=== PATIENT | female | born 1955 | race Caucasian/White ===

== ENCOUNTER 2019-06-23 14:34 | Outpatient (CLI) | payer BC, SELFPAY ==
--- NOTE | ~2019-06-23 | DEXA_ITS ---
Bone Density Report Name: Paris Munson Age: 63 Sex: Female Ethnicity: White Date of : 1955 Indication: osteopenia; prior fracture; Referring Provider: BILLY ESCOBAR Study: Bone densitometry was performed. Exam Date: June 23, 2019 Accession number: [id number] Bone Density: Region BMD T-score Z-score Classification AP Spine (L1, L2, L3) 1.048 0.3 1.9 Normal Femoral Neck (Left) 0.706 -1.3 0.1 Osteopenia Total Hip (Left) 0.782 -1.3 -0.2 Osteopenia Total Hip Bilateral Avg 0.783 -1.3 -0.2 Osteopenia Femoral Neck (Right) 0.662 -1.7 -0.3 Osteopenia Total Hip (Right) 0.782 -1.3 -0.2 Osteopenia World Health Organization criteria for BMD impression classify patients as: Normal (T-score at or above -1.0), Osteopenia (T-score between -1.0 and -2.5), or Osteoporosis (T-score at or below -2.5). 10-year Fracture Risk(1): Major Osteoporotic Fracture 15% Hip Fracture 1.6% Reported Risk Factors: [place] (), Neck BMD=0.662, BMI=26.4, previous fracture (1) FRAX(R) Version 3.08. Fracture probability calculated for an untreated patient. Fracture probability may be lower if the patient has received treatment. Previous Exams: Region Exam Age BMD T-score BMD Change BMD Change Date g/cm2 vs Baseline vs Previous AP Spine(L1, L2, L3) 06/23/2019 63 1.048 0.3 -0.030(-2.8%)* -0.030(-2.8%)* 02/02/2017 61 1.078 0.5 Total Hip(Left) 06/23/2019 63 0.782 -1.3 -0.018(-2.3%) -0.018(-2.3%) 02/02/2017 61 0.800 -1.2 Total Hip(Right) 06/23/2019 63 0.782 -1.3 -0.013(-1.6%) -0.013(-1.6%) 02/02/2017 61 0.795 -1.2 *Denotes significance at 95% confidence level, LSC for AP Spine = 0.022 g/cm2, LSC for Total Hip = 0.027 g/cm2 Clinical Information Provided by Patient: Has had a low trauma fracture Has used the following medications: Vitamin D, Calcium Patient maximum height was 65 Menopause Age: 52 Does not regularly consume dairy products Drinks caffeinated beverages Onset of menses at age 13 Number of children 6 Impression: The patient has low bone mass, based on the Right Femoral Neck T-score. The patient has an estimated ten-year risk of hip fracture of 1.6% and an estimated ten-year risk of major fracture of 15%, based on the WHO FRAX algorithm. The patient has risk factors, including: previous fracture. The BMD for the AP Spine(L1, L2, L3) decreased, changing by -2.8% since the last DXA exam. Discussion: BONE DENSITY IS LOW
--- NOTE | ~2019-06-23 | MM_ITS ---
EXAMINATION: MM screening [facility] BI w georgette HISTORY: Screening mammogram TECHNIQUE: Craniocaudal and mediolateral oblique 3-D tomosynthesis images were obtained and synthetic 2-D images were generated. CAD analysis was submitted and interpreted. COMPARISON: Comparison to multiple prior studies sequentially, with oldest reviewed study dated 01/05. BREAST PARENCHYMAL COMPOSITION: There are scattered areas of fibroglandular density. FINDINGS: There is no evidence of suspicious mass, calcification, or architectural distortion to sugg est malignancy in either breast. There has been no suspicious interval change. IMPRESSION: 1. No mammographic evidence of malignancy. 2. Recommend routine screening mammography in one year. BI-RADS Category 1: Negative Reviewed, dictated and finalized at location A.
== END 2019-06-23 14:35 | disposition home or self-care (01) ==
LOC: ANHIMG 14:40
PROVIDERS: PCP Internal Medicine; Visit Provider Obstetrics & Gynecology Gynecology
DX: Z12.31 Encounter for screening mammogram for malignant neoplasm of breast (principal); Z78.0 Asymptomatic menopausal state; M85.852 Other specified disorders of bone density and structure, left thigh; M85.851 Other specified disorders of bone density and structure, right thigh
CPT/HCPCS: 77063; 77067; 77080

== ENCOUNTER 2020-06-24 10:31 | Outpatient (CLI) | payer BC, SELFPAY ==
--- NOTE | ~2020-06-24 | MM_ITS ---
EXAMINATION: MM screening [facility] BI w georgette HISTORY: Screening mammogram TECHNIQUE: Craniocaudal and mediolateral oblique 3-D tomosynthesis images were obtained and synthetic 2-D images were generated. CAD analysis was submitted and interpreted. COMPARISON: 06/23/2019, 06/16/2018, 02/02/2017 bilateral digital screening mammogram examinations BREAST PARENCHYMAL COMPOSITION: There are scattered areas of fibroglandular density. FINDINGS: There is no evidence of suspicious mass, calcification, or architectural distortion to sugg est malignancy in either breast. There has been no suspicious interval change. IMPRESSION: 1. No mammographic evidence of malignancy. 2. Recommend routine screening mammography in one year. BI-RADS Category 1: Negative Reviewed, dictated and finalized at location B.
== END 2020-06-24 10:32 | disposition home or self-care (01) ==
LOC: ANHIMG 10:33
PROVIDERS: PCP Internal Medicine; Visit Provider Obstetrics & Gynecology Gynecology
DX: Z12.31 Encounter for screening mammogram for malignant neoplasm of breast (principal)
CPT/HCPCS: 77063; 77067

== ENCOUNTER 2021-10-16 10:01 | Outpatient (CLI) | payer MEDICARE, OTHER, SELFPAY ==
--- NOTE | ~2021-10-16 | DEXA_ITS ---
Bone Density Report Name: MARIE COOK Age: 66 Sex: Female Ethnicity: White Date of : 1955 Indication: postmenopausal; screening for osteoporosis; height loss; rheumatoid arthritis; Referring Provider: BILLY ESCOBAR Study: Bone densitometry was performed. Exam Date: October 16, 2021 Accession number: [id number] Bone Density: Region BMD T-score Z-score Classification AP Spine(L1-L4) 1.110 0.6 2.4 Normal Femoral Neck (Left) 0.691 -1.4 0.1 Osteopenia Total Hip (Left) 0.787 -1.3 0.0 Osteopenia Femoral Neck (Right) 0.685 -1.5 0.0 Osteopenia Total Hip (Right) 0.766 -1.4 -0.2 Osteopenia Total Hip Mean 0.777 -1.4 -0.1 Osteopenia World Health Organization criteria for BMD impression classify patients as: Normal (T-score at or above -1.0), Osteopenia (T-score between -1.0 and -2.5), or Osteoporosis (T-score at or below -2.5). 10-year Fracture Risk(1): Major Osteoporotic Fracture 11% Hip Fracture 1.3% Reported Risk Factors: [place] (), Neck BMD=0.691, BMI=25.3, rheumatoid arthritis (1) FRAX(R) Version 3.08. Fracture probability calculated for an untreated patient. Fracture probability may be lower if the patient has received treatment. Clinical Information Provided by Patient: Has rheumatoid arthritis Has used the following medications: Vitamin D, Calcium Patient maximum height was 66 Menopause Age: 52 Drinks caffeinated beverages Onset of menses at age 13 Number of children 6 Impression: The patient has low bone mass, based on the Right Femoral Neck T-score. The patient has an estimated ten-year risk of hip fracture of 1.3% and an estimated ten-year risk of major fracture of 11%, based on the WHO FRAX algorithm. Discussion: BONE DENSITY IS LOW AT ONE OR MORE SKELETAL SITES. This patient's lowest T-score is low at one or more skeletal sites. It meets the World Health Organization's (WHO) criteria for ?low bone mass? (T-score between -1.0 and -2.5). The patient's 10-year risk of fracture as calculated by FRAX is less than the threshold where pharmacological therapy is recommended by the National Osteoporosis Foundation (NOF). However, all treatment decisions require clinical judgment and consideration of individual patient factors, including patient preferences, comorbidities, previous drug use, risk factors not captured in the FRAX model (e.g., frailty, falls, vitamin D deficiency, increased bone turnover, interval significant decline in bone density) and possible under or overestimation of fracture risk by FRAX. The patient should follow a healthful lifestyle (good nutrition with adequate calcium and vitamin D, and appropriate weight-bearing exercise). Follow-Up: Consider repeating this study in 2 to 3 years to reassess this patient's status, or sooner if ther
--- NOTE | ~2021-10-16 | MM_ITS ---
EXAMINATION: MM screening [facility] BI w georgette HISTORY: Screening mammogram TECHNIQUE: Craniocaudal and mediolateral oblique 3-D tomosynthesis images were obtained and synthetic 2-D images were generated. CAD analysis was submitted and interpreted. COMPARISON: 06/24/2020, 06/23/2019, 06/16/2018 BREAST PARENCHYMAL COMPOSITION: There are scattered areas of fibroglandular density. FINDINGS: There is no suspicious mass, calcification, or architectural distortion to suggest malignan cy in either breast. There has been no suspicious interval change. IMPRESSION: 1. No mammographic evidence of malignancy. 2. Recommend routine screening mammography in one year. BI-RADS Category 1: Negative Reviewed, dictated and finalized at location A.
== END 2021-10-16 10:02 | disposition home or self-care (01) ==
PROVIDERS: PCP Internal Medicine; Visit Provider Obstetrics & Gynecology Gynecology
DX: Z12.31 Encounter for screening mammogram for malignant neoplasm of breast (principal); Z78.0 Asymptomatic menopausal state; M85.852 Other specified disorders of bone density and structure, left thigh; M85.851 Other specified disorders of bone density and structure, right thigh
CPT/HCPCS: 77063; 77067; 77080

== ENCOUNTER 2023-07-19 10:01 | Outpatient (CLI) | payer MEDICARE, OTHER, SELFPAY ==
--- NOTE | ~2023-07-19 | MM_ITS ---
EXAMINATION: MM screening [facility] BI w georgette HISTORY: Screening TECHNIQUE: Craniocaudal and mediolateral oblique 3-D tomosynthesis images were obtained and synthetic 2-D images were generated. CAD analysis was submitted and interpreted. COMPARISON: Comparison to multiple prior studies sequentially, with oldest reviewed study dated 06/24. BREAST PARENCHYMAL COMPOSITION: FINDINGS: There is no evidence of suspicious mass, calcification, or architectural distortion to sugg est malignancy in either breast. There has been no suspicious interval change. IMPRESSION: 1. No mammographic evidence of malignancy. 2. Recommend routine screening mammography in one year. BI-RADS Category 1: Negative Reviewed, dictated and finalized at location A.
== END 2023-07-19 10:02 | disposition home or self-care (01) ==
LOC: ANHIMG 10:04
PROVIDERS: PCP Physician Assistant; Visit Provider Obstetrics & Gynecology Gynecology
DX: Z12.31 Encounter for screening mammogram for malignant neoplasm of breast (principal)
CPT/HCPCS: 77063; 77067

== ENCOUNTER 2024-09-29 08:21 | Outpatient (CLI) | payer MEDICARE, OTHER, SELFPAY ==
--- NOTE | ~2024-09-29 | DEXA_ITS ---
Bone Density Report Name: MARIE COOK Age: 69 Sex: Female Ethnicity: White Date of : 1955 Indication: osteopenia; parental hip fracture; height loss; Referring Provider: BILLY ESCOBAR Study: Bone densitometry was performed. Exam Date: September 29, 2024 Accession number: [id number] Bone Density: Region BMD T-score Z-score Classification AP Spine(L1-L4) 1.087 0.4 2.3 Normal Femoral Neck (Left) 0.653 -1.8 -0.1 Osteopenia Total Hip (Left) 0.794 -1.2 0.2 Osteopenia Femoral Neck (Right) 0.697 -1.4 0.3 Osteopenia Total Hip (Right) 0.742 -1.6 -0.2 Osteopenia Total Hip Mean 0.768 -1.4 0.0 Osteopenia World Health Organization criteria for BMD impression classify patients as: Normal (T-score at or above -1.0), Osteopenia (T-score between -1.0 and -2.5), or Osteoporosis (T-score at or below -2.5). 10-year Fracture Risk(1): Major Osteoporotic Fracture 17% Hip Fracture 2.5% Reported Risk Factors: [place] (), Neck BMD=0.653, BMI=25.3, parental fracture (1) FRAX(R) Version 3.08. Fracture probability calculated for an untreated patient. Fracture probability may be lower if the patient has received treatment. Previous Exams: Region Exam Age BMD T-score BMD Change BMD Change Date g/cm2 vs Baseline vs Previous AP Spine (L1-L4) 09/29/2024 69 1.087 0.4 -0.023 (-2.1%) -0.023 (-2.1%) 10/16/2021 66 1.110 0.6 Total Hip(Left) 09/29/2024 69 0.794 -1.2 0.007 (0.9%) 0.007 (0.9%) 10/16/2021 66 0.787 -1.3 Total Hip(Right) 09/29/2024 69 0.742 -1.6 -0.025 (-3.2%) -0.025 (-3.2%) 10/16/2021 66 0.766 -1.4 *Denotes significance at 95% confidence level, LSC for AP Spine = 0.022 g/cm2, LSC for Total Hip = 0.027 g/cm2 Clinical Information Provided by Patient: Parent has had a hip fracture Has used the following medications: Vitamin D, Calcium Patient maximum height was 67 Menopause Age: 52 Does not regularly consume dairy products Drinks caffeinated beverages Onset of menses at age 13 Number of children 6 Impression: The patient has low bone mass, based on the Left Femoral Neck T-score. The patient has an estimated ten-year risk of hip fracture of 2.5% and an estimated ten-year risk of major fracture of 17%, based on the WHO FRAX algorithm. The patient has risk factors, including: parental hip fracture. The BMD for the AP Spine (L1-L4) decreased, changing by -2.1% since the last DXA exam. Discussion: BONE DENSITY IS LOW AT ONE OR MORE SKELETAL SITES. This patient's lowest T-score is low at one or more skeletal sites. It meets the World Health Organization's (WHO) criteria for ?low bone mass? (T-score between -1.0 and -2.5). The patient's 10-year risk of fracture as calculated by FRAX is less than the threshold where pharmacological therapy is recommended by the National Osteoporosis Foundation (NOF). However, all treatment decisions require clinical judgment and consideration of individual patient factors, including patient preferences, comorbidities, previous drug use, risk factors not captured in the FRAX model (e.g., frailty, falls, vitamin D deficiency, increased bone turnover, interval significant decline in bone density) and possible under or overestimation of fracture risk by FRAX. The patient should follow a healthful lifestyle (good nutrition with adequate calcium and vitamin D, and appropriate weight-bearing exercise). Follow-Up: Consider repeating this study in 2 years to reassess this patient's status, or sooner if there is some new clinical indication. Reported by: HAY on 09/29/2024 8:57:00 AM. Reviewed, dictated and finalized at location A.
== END 2024-09-29 08:22 | disposition home or self-care (01) ==
LOC: ANHIMG 08:23
PROVIDERS: PCP Physician Assistant; Visit Provider Obstetrics & Gynecology Gynecology
DX: Z78.0 Asymptomatic menopausal state (principal); M85.852 Other specified disorders of bone density and structure, left thigh; M85.851 Other specified disorders of bone density and structure, right thigh
CPT/HCPCS: 77080

== ENCOUNTER 2025-03-07 15:05 | Outpatient (CLI) | payer MEDICARE, OTHER, SELFPAY ==
--- NOTE | ~2025-03-07 | MM_ITS ---
EXAMINATION: MM screening kandi BI w georgette HISTORY: Screening. TECHNIQUE: Craniocaudal and mediolateral oblique 3-D tomosynthesis images were obtained and synthetic 2-D images were generated. CAD analysis was submitted and interpreted. COMPARISON: 2023, 2021, 2020 BREAST PARENCHYMAL COMPOSITION: Not Dense: There are scattered areas of fibroglandular FINDINGS: There is asymmetry just medial to the nipple line in the posterior depth on the left craniocaudal view. There are no suspicious calcifications. No unexplained architectural distortion is seen. There are no skin or nipple abnormalities identified. There is no adenopathy seen on the images submitted. IMPRESSION: Asymmetry as described for which additional imaging is recommended. BI-RADS 0 - Incomplete - needs additional imaging evaluation and/or prior mammograms for comparison. Reviewed, dictated and finalized at location B. SSES FEED MIXER IMPRESSION: Asymmetry as described for which additional imaging is recommended. BI-RADS 0 - Incomplete - needs additional imaging evaluation and/or prior mammo grams for comparison.
--- OUTSIDE RECORDS SUMMARY | 2025-03-07 16:28 | XMS_ITS | Clinical Summary ---
Author Organization [facility] Building A Address [address] [place] [address] Care Team Providers Care Vp Project Name Role Phone Unruly Mc Primary Care Provider Romy Rowe MD Unavailable [phone] Melecio Tinajero MD Unavailable [phone] Allergies No known active allergies Medications multivitamin capsule Take 1 capsule by mouth daily Active cholecalciferol , vitamin D3, (VITAMIN D3 ORAL) Take by mouth Twice a week Active Active Problems Problem Noted Date Diagnosed Date Sinus bradycardia 07/16/2021 Hx of colonic polyps 08/06/2020 Overview (08/06/2020): Added automatically from request for surgery [id number] Osteopenia of multiple sites 06/28/2019 Generalized anxiety disorder 04/15/2017 Immunizations Immunization Administration Dates Next Due Influenza, Quad, Adjuvantate d, Intramuscular 02/17/2023,02/03/2022 Influenza, Quadrivalent, Spl it, Preservative Free, Intradermal 02/07/2016,02/15/2015 Influenza, Quadrivalent, Spl it, Preservative Free, Intramuscular 02/04/2021,02/14/2020,01/19/2019,01/18,03/04/2017 Influenza, Split 03/16/2013, 2,01/22/2011,02/14,04/08/2009 Influenza, Trivalent, Adjuva nted, Intramuscular 02/17/2024 Influenza, Trivalent, IM (MDV) 03/16/2013,2007 Influenza, Trivalent, Recomb inant, Egg Free, Preservative Free, Antibiotic Free, IM (FLUBLOK) 01/24/2014 Pfizer SARS-CoV-2 Monovalent Vaccination (12+ Yrs) PURPLE 07/06/2020 Pneumococcal Conjugate Pcv20 09/29/2022 Pneumococcal Polysaccharide PPV23 07/15/2021 Td, adsorbed 06/23/2018 Tdap 03/15/2006 ZOSTER Recombinant 09/14/2019,05/12/2019 Surgical History Surgery Date Site/Laterality Comments OTHER SURGICAL HISTORY salpingoohrectomy right TUBAL LIGATION Bilateral tubal ligation COLONOSCOPY 08/03/2012 - 09/02/2012 Medical History Medical History Date Comments 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 Family History Medical History Relation Name Comments Other Brother 4 Alive and well; Other Brother 5 Alive and well; Other Brother 6 Alive and well; Other Father Alive and well; Rheum arthritis Father Heart failure Mother Hypertension Mother Hypertension; Uterine cancer Mother Cancer -uteri ne; Rheum arthritis Sister Relation Name Status Comments Brother 1 Alive Brother 2 Alive Brother 3 Alive Brother 4 Brother 5 Brother 6 Father Alive Mother Sister Social History Tobacco Use Types Packs/Day Years Used Date Smoking Tobacco: Never Smokeless Tobacco: Never Tobacco Cessation:Counseling Given: Not Answered Alcohol Use Standard Drinks/Week Comments No 0 (1 standard drink = 0.6 oz pur e alcohol) AUDIT-C Answer Date Recorded Q1: How often do you have a drink containing alcohol? Never 10/05/2024 Q2: How many drinks containi ng alcohol do you have on a typical day when you are drinking? Patient does not drink Q3: How often do you have si x or more drinks on one occasion? 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 Gender Identity Not on file Sexual Orientation Not on file Last Filed Vital Signs Vital Sign Reading Time Taken Comments Blood Pressure 130/76 10/05/2024 10:50 AM CDT Pulse 55 10/05/2024 10:50 AM CDT Temperature 36.9 C (98.5 F) 10/05/2024 10:50 AM CDT Respiratory Rate 16 10/05/2024 10:50 AM CDT Oxygen Saturation 98% 10/05/2024 10:50 AM CDT Inhaled Oxygen Concentration - - Weight 69.6 kg (153 lb 6.4 oz) 10/05/2024 10:50 AM CDT Height 161.9 cm (5' 3.75) 10/05/2024 10:50 AM C DT Body Mass Index 26.54 10/05/2024 10:50 AM CDT Plan of Treatment Health Maintenance Due Date Last Done Comments Hepatitis B Screening 1973 Breast Cancer Screening-Mammogram 07/18/2024 07/19/2023, 10/16/2021, 06/23/2019, Additional history exists Covid-19 Vaccine (2024-05 6 season) 2024 02/03/2022, 07/26/2020, 07/06/2020 Depression Screening 10/05/2025 10/05/2024, 09/30/2023, 10/29/2022, Additional history exists Fall Risk Assessment 10/05/2025 10/05/2024, 09/30/2023, 10/29/2022, Additional history exists Well Visit 65+ 10/05/2025 10/05/2024, 09/04, 09/29/2022, Additional history exists Colon Cancer Screening-Colonoscopy 11/04/2025 11/04/2020, 08/04/2012, 08/04/2012 Osteoporosis Screening-Bone Density Scan 09/29/2026 09/29/2024, 10/16/2021, 06/23/2019, Additional history exists DTaP/Tdap/Td Vaccine (3 - Td or Tdap) 06/23/2028 06/23/2018, 03/15/2006 Zoster Vaccine Completed 09/14/2019, 05/12/2019 Colon Cancer Screening-CT Colonography Discontinued 11/04/2020, 08/04/2012, 08/04/2012 Colon Cancer Screening-DNA Stool Discontinued 11/04/2020, 08/04/2012, 08/04/2012 Colon Cancer Screening-FIT Discontinued 11/04, 08/04/2012, 08/04/2012 Colon Cancer Screening-Sigmoidoscopy Discontinued 11/04/2020, 08/04/2012, 08/04/2012 Pneumococcal vaccine 65+ Completed 09/29/2022, 07/04 Hepatitis C Screening Completed 10/01/2023 Influenza Vaccine Completed 02/07/2025, , 02/17/2023, Additional history exists Procedures Procedure Name Priority Date/Time Associated Diagnosis Comments DEXA AXIAL SKELETON BONE DENSITY 1 OR MORE SITES Schedule Routine, Read Routine (OP Routine) 09/29/2024 HEPATITIS C ANTIBODY Routine 10/01/2023 8:27 AM CDT Need for hepatitis C screening test SCREENING MAMMOGRAM BILATERAL W RAO Schedule Routine, Read Routine (OP Routine) 07/19/2023 COLONOSCOPY 11/04/2020 12:50 PM CDT from Last 3 Months or Most Recently Relevant to Health Maintenance Results * Dexa Axial Skeleton Bone Density 1 or 2 Site (09/29/2024) Anatomical Region Laterality Modality Body N/A Radiographic Brooke ging RECCY External Data Provider IMG DXA PROCEDURE S Final Result * Hepatitis C antibody Blood (10/01/2023 8:27 AM CDT) Hep C Ab NON-REACTI VE NON-REACT [facility] Comment: HCV antibody was non-reactive. There is no laboratory evidence of HCV infection. In most cases, no further action is required. However, if recent HCV exposure is suspected, a test for HCV RNA (test code 73181) is suggested. For additional information please refer to http://education.Compliance Science.Physicians Interactive/faq/YVV17g7 (This link is being provided for informational/ educational purposes only.) Blood 10/01/2023 8:27 AM CDT 10/01/2023 8:29 AM CDT Narrative QUEST - 10/11/2023 1:48 PM CDT PATIENT STATED ORDER WITH THE HEP ONLY FASTING:YES FASTING: YES us Unruly [facility] MICROBIOLOGY - GENE RAL ORDERABLES Final Result Cloudian Wendy[place]Hardik [address] [id number] * Screening Mammogram Bilateral W Rao (07/19/2023) Anatomical Region Laterality Modality Breast Bilateral Mammography us Generic External Data Provider IMG MAMMO PROCEDU RES Final Result * COLONOSCOPY (11/04/2020 12:50 PM CDT) Anatomical Region Laterality Modality Other Narrative Procedure Note Nyla Humphrey MD - 11/04/2020 12:[address] Patient Name: Paris Munson Procedure Date: 11/04/2020 12:50 PM Date of : 1955 Admit Type: Outpatient Age: 65 Gender: Female Attending MD: Nyla Humphrey M.D. Room: [facility] ENDOSCOPY ROOM 1 Note Status: Finalized Patient Profile: This is a 65 year old female. No family history of colon cancer. History of colon polyps and 1013. No specific GI complaint Procedure: Colonoscopy Indications: High risk colon cancer surveillance: Personalhistory of colonic polyps, Last colonoscopy: August 2012 Referring MD: Melecio Anderson M.D. Providers: Nyla Humphrey M.D. Impression: - The entire examined colon is normal overall. - Diverticulosis in the sigmoid colon and in the ascending colon. - Internal hemorrhoids. - No specimens collected. Recommendation: - Repeat colonoscopy in 8 years for screeningpurposes. - Continue present medications. Medicines: Monitored Anesthesia Care Complications: No immediate complications. Estimated Blood Loss: Estimated blood loss: none. Procedure: Pre-Anesthesia Assessment: - Prior to the procedure, a History and Physicalwas performed, and patient medications and allergieswere reviewed. The patient's tolerance of previous anesthesia was also reviewed. The risks andbenefits of the procedure and the sedation options and risks were discussed with the patient. All questions were answered, and informed consent was obtained. Prior Anticoagulants: The patient has taken no previous anticoagulant or antiplatelet agents. ASA Grade Assessment: II - A patient with mild systemicdisease. After reviewing the risks and benefits, the patient was deemed in satisfactory condition to undergo the procedure. The benefits, risks and alternatives of theprocedure and sedation were discussed and informed consentwas obtained. All questions were answered. Please referto the signed informed consent document in the medical record. The bowel preparation used was Miralax via split dose instruction. The bowel preparation usedwas bisacodyl tablets via split dose instruction. Bowel prep was administered using a split dose. The scope was passed under direct vision. The Pediatric Colonoscope PCF-H190L [id number] was introducedthrough the anus and advanced to the the cecum, identifiedby appendiceal orifice and ileocecal valve. Thequality of the bowel preparation was good. Findings: The perianal and digital rectal examinations were normal. The cecum appeared normal. The terminal ileum was intubated andappeared normal. The colon (entire examined portion) appeared normal. No polyps and no mass lesions noted Many medium-mouthed diverticula were found in the sigmoid colon and ascending colon. Internal hemorrhoids were found during retroflexion. The hemorrhoids were medium-sized. Electronically signed by yNla Humphrey M.D. Nyla Humphrey M.D. 11/04/2020 2:58:19 PM Number of Addenda: 0 Note Initiated On: 11/04/2020 12:50 PM Procedure Code(s): --- Professional --- 38267, Colonoscopy, flexible; diagnostic, including collection of specimen(s) by brushing or washing, when performed (separateprocedure) Diagnosis Code(s): --- Professional --- Z86.010, Personal history of colonic polyps K64.8, Other hemorrhoids K57.30, Diverticulosis of large intestine without perforation orabscess without bleeding CPT copyright 2019 [employer]. All rights reserved. The codes documented in this report are preliminary and upon ux lead reviewmay be revised to meet current compliance requirements. Recognized by the [employer] for promoting quality in endoscopy Nyla Humphrey MD ENDOSCOPY PROCEDURES Final Result from Last 3 Months or Most Recently Relevant to Health Maintenance Insurance MEDICARE [facility] Advance Directives For more information, please contact: [phone] * Full Code (Latest Code Status on File) Date Activated Date Inactivated Comments 11/04/2020 12:41 PM 11/04/2020 7:40 PM Care Teams Vp Project Relationship Specialty Start Date End Date Unruly Mc PA [address] [place] [address] PCP - General Internal Medicine 09/29/22 Romy Rowe MD [address] [place] [address] Referring Physician Gynecology 09/30/23 Melecio Tinajero MD [address] [place] [id number] Referring Physician Otolaryngology 10/05/24 KENENY OPT Optometry 10/05/24
--- OUTSIDE RECORDS SUMMARY | 2025-03-07 16:28 | XMS_ITS | Clinical Summary ---
Author Organization Gagan Bettencourt [facility] Address [address] [place] [address] Phone Care Team Providers Care Labor Custodian Name Role Phone Unavailable Primary Care Provider Unavailabl e Medications ergocalciferol, vitamin D2, (VITAMIN D ORAL) 2006 Ac tive multivitamin with minerals (ONE-A-DAY 50 PLUS ORAL) 2006 Active Active Problems Problem Noted Date Diagnosed Date Multiple thyroid nodules 09/16/2022 Encounters Date Type Department Care Team Description 02/20/2025 External Device Data STL ABSTRACTION Provider, Abstract 01/24/2025 External Device Data STL ABSTRACTION Provider, Abstract 01/24/2025 External Device Data STL ABSTRACTION Provider, Abstract 12/19/2024 External Device Data STL ABSTRACTION Provider, Abstract from Last 3 Months Family History Medical History Relation Name Comments Heart Disease Father Dakota Smalls CHF with mitr al valve disease Cancer Mother Erica Smalls uterine ca Heart Disease Mother Erica Smalls Hypertensive C HF with atrial fib Hypertension Mother Erica Smalls Hearing Loss Sister Shahida Mcnally M ni re's disease with bilateral hearing loss Relation Name Status Comments Father Dakota Smalls Mother Erica Smalls Sister Shahida Mcnally Social History Tobacco Use Types Packs/Day Years Used Date Smoking Tobacco: Never Tobacco Cessation:Counseling Given: Not Answered Alcohol Use Standard Drinks/Week Comments Never 0 (1 standard drink = 0.6 oz pur e alcohol) Comments Unknown Sex and Gender Information Value Date Recorded Sex Assigned at Female 06/22/2024 10:45 AM CDT Legal Sex Female 8:11 AM CDT Gender Identity Female 06/22/2024 10:45 AM CDT Sexual Orientation Straight 06/22/2024 10 :45 AM CDT Plan of Treatment Health Maintenance Due Date Last Done Comments FIT-DNA Q 3 years 2001 FIT/FOBT Q 1 year 2001 Flex Sig/CT Colonography Q 5 years 2001 BREAST CANCER SCREENING 07/18/2024 07/19/19 24, 01/16/2015, 10/04/2013, Additional history exists INFLUENZA VACCINE (#1) 2024 3, 02/03/2022, 02/04/2021, Additional history exists COVID-19 Vaccine (2 2024-2 6 season) 2024 07/06/2020 OSTEOPOROSIS SCREENING 10/16/2026 10/16/2021, 2013 DTAP/TDAP/TD VACCINES (3 - T d or Tdap) 06/23/2028 06/23/2018, 03/15/2006 COLORECTAL SCREENING 11/04/2030 11/04/2020, 11/04/2020, 08/04/2012 Colorectal Cancer Screening 11/04/2030 RSV VACCINE (60+ or ) (1 - 1-dose 75+ series) 07/11/2031 ZOSTER VACCINE Completed 09/14/2019, 05/12/2019 PNEUMOCOCCAL VACCINE 50+ YEARS Completed 09/29/2022 , 07/15/2021 Insurance MEDICARE PART A AND B [facility]
--- OUTSIDE RECORDS SUMMARY | 2025-03-07 16:28 | XMS_ITS | Encounter Summary ---
Author Organization [facility] Address [address] [place] [address] Phone Care Team Providers Care Yarn Examiner Skeins Name Role Phone Melecio Anderson MD Primary Care Provider [phone] Unruly Mc Primary Care Provider Romy Rowe MD Unavailable [phone] Melecio Tinajero MD Unavailable [phone] Encounter Details Date Type Department Care Team (Late st Contact Info) Description 04/15/2017 Orders Only [facility] ProviderManuel MD [address] [place] [id number] Social History Tobacco Use Types Packs/Day Years Used Date Smoking Tobacco: Never Smokeless Tobacco: Never Alcohol Use Standard Drinks/Week Comments No 0 (1 standard drink = 0.6 oz pur e alcohol) Comments Unknown Sex and Gender Information Value Date Recorded Sex Assigned at Not on file Legal Sex Female 6:28 PM BAR CATCHER Gender Identity Not on file Sexual Orientation Not on file documented as of this encounter Functional Status * In the past year, patient experienced: Question Answer Date of Assessment Author One or more falls in the las t year No 04/15/2017 10:25 AM Imelda Modi ra, [place] * BP Location Answer Date of Assessment Author Right arm 04/15/2017 10:29 AM Miri Christensen MA * BP Location Answer Date of Assessment Author Right arm 04/15/2017 10:29 AM Miri Christensen MA documented as of this encounter Plan of Treatment Not on file documented as of this encounter Procedures Procedure Name Priority Date/Time Associated Diagnosis Comments DISCHARGE LABORATORY CUMULATIVE REPORT 04/15/2017 12:00 AM BAR CATCHER documented in this encounter Results * DISCHARGE LABORATORY CUMULATIVE REPORT (04/15/2017 12:00 AM BAR CATCHER) Narrative 04/15/2017 12:00 AM BAR CATCHER Ordered by an unspecified provider. Historical Provider LAB BLOOD ORDERABLES Caity l Result documented in this encounter Visit Diagnoses Not on filedocumented in this encounter Care Teams Yarn Examiner Skeins Relationship Specialty Start Date End Date Melecio Anderson MD PCP - General 07/20/13 09/28/22 Unruly Mc PA [address] [place] [address] [address] [place] [address] PCP - General Internal Medicine 09/29/22 Romy Rowe MD [address] [facility] [address] [place], [place] [id number] Referring Physician Gynecology 09/30/23 Melecio Tinajero MD [address] [place] [id number] Referring Physician Otolaryngology 10/05/24 [facility] Optometry 10/05/24 documented as of this encounter
== END 2025-03-07 15:06 | disposition home or self-care (01) ==
LOC: ANHFOHIMG 15:06
PROVIDERS: PCP Physician Assistant; Visit Provider Obstetrics & Gynecology Gynecology
DX: Z12.31 Encounter for screening mammogram for malignant neoplasm of breast (principal); R92.8 Other abnormal and inconclusive findings on diagnostic imaging of breast
CPT/HCPCS: 77063; 77067